=== PATIENT | male | born 1985 | race African-American/Black ===

== ENCOUNTER 2023-07-11 09:25 | Emergency (ER) | payer OTHER ==
[~2023-07-11] VITALS: Ht 172.7 cm; Wt 82.6 kg
[2023-07-11 09:37] VITALS: BP 120/74; PULSE 71; RESP 19; TEMP 97.8; O2SAT 99
[2023-07-11 10:21] LABS: HEMATOCRIT 35.3 % (36-52); MEAN CORPUSCULAR HEMOGLOBIN 29 pg (27-31); MEAN CORPUSCULAR HGB CONC 34 g/dL (33-37); MEAN CORPUSCULAR VOLUME 85.3 fL (80-94); PLATELET COUNT (AUTO) 265 K/uL (140-450); RED BLOOD CELL COUNT(AUTO) 4.14 MIL/uL (4.20-6.10); RED CELL DISTRIBUTION WIDTH 23.1 % (11.6-13.7); WHITE BLOOD COUNT (AUTO) 12.5 K/uL (4.8-10.8)
[2023-07-11 10:36] LABS: ALBUMIN 2.9 g/dL (3.4-5.0); ANION GAP 10.1 (8-16); CARBON DIOXIDE 32.2 mmol/L (21-32); POTASSIUM 3.3 mmol/L (3.5-5.1); TOTAL BILIRUBIN 26.9 mg/dL (0.0-1.0); TOTAL PROTEIN, SERUM 6.8 g/dL (6.4-8.2)
[2023-07-11 10:38] LABS: INR 1.11 (0.8-1.2); PROTHROMBIN TIME 11.6 secs (10.8-13.4)
[2023-07-11 11:04] LABS: BASOPHILS % (MANUAL) 0 % (0-2); BLASTS, MANUAL % 0 % (0-0); EOSINOPHILS % (MANUAL) 1 % (0-4); LYMPHOCYTES % (MANUAL) 6 % (20-46); METAMYELOCYTES % 0 % (0-0); MONOCYTES % (MANUAL) 5 % (5-12); MYELOCYTES % 0 % (0-0); OTHER CELLS,MANUAL % 0 (0-0); PLASMA CELLS 0; PLATELET ESTIMATE ADEQUATE; PROMYELOCYTES % 0 % (0-0); SMUDGE CELLS 0
[2023-07-11 11:05] LABS: ANISOCYTOSIS 3+; TARGET CELLS 1+; TEAR DROP CELLS 1+
[2023-07-11] MEDS ORDERED: AMOX1TAB8 PO (11:20)
[2023-07-11] MEDS ORDERED: ONDA-188 PO (11:20)
[2023-07-11] MEDS ORDERED: [UNRECOGNIZED DRUG - CODE] PO (11:21)
[2023-07-11] MEDS ORDERED: ATA10 PO (11:39)
[2023-07-11 11:52] VITALS: BP 120/74; PULSE 71; RESP 19; TEMP 97.8; O2SAT 99
== END 2023-07-11 11:52 | disposition home or self-care (01) ==
LOC: MED 09:25
DX: K04.7 Periapical abscess without sinus (principal); R17 Unspecified jaundice; R74.01 Elevation of levels of liver transaminase levels; R79.89 Other specified abnormal findings of blood chemistry; D72.825 Bandemia; Z79.899 Other long term (current) drug therapy
CPT/HCPCS: 36415; 80053; 85025; 85610; 85730; 99283